=== PATIENT | female | born 1965 | race Caucasian/White ===

== ENCOUNTER 2022-11-04 07:57 | Emergency (ER) | payer BC, SELFPAY ==
--- NOTE | ~2022-11-04 | XR_ITS ---
EXAMINATION: XR chest 2V DATE: 11/04/2022 08:50 INDICATION: Sharp abdominal pain concurrent with syncopal episode TECHNIQUE: frontal and lateral views of the chest were obtained. COMPARISON: None FINDINGS: The lungs are clear with no focal airspace opacities, pulmonary edema, pleural effusion or pneumothor ax. The cardiomediastinal silhouette is normal. Post cystectomy clips in right upper quadrant. Left t otal shoulder arthroplasty. IMPRESSION: 1. No acute cardiopulmonary disease. Reviewed, dictated and finalized at location A.
--- NOTE | ~2022-11-04 | CT_ITS ---
CT of the Abdomen and Pelvis: Indication: Abdominal pain Technique: 2.5 mm axial scans were obtained through the abdomen and pelvis following intravenous adm inistration of 100 cc of Omnipaque 350. Dose reduction technique was used on this scan by utilizing a utomated exposure control and iterative reconstruction technique. The dose-length product (DLP) was 2 39.43 mGy-cm. Findings: Scans through the lung bases are unremarkable. 9 mm hypodense left hepatic lobe structure is present, indeterminate. Cholecystectomy clips are prese nt. The spleen, pancreas, adrenals and kidneys are within normal limits. No evidence of aortic aneur ysm. No lymphadenopathy. No bowel obstruction. There is an area of apparent active contrast extravasation into the lumen of th e terminal ileum (axial image 113), suspicious for active GI bleeding at this location. Images through the pelvis were performed. Urinary bladder unremarkable. No pelvic mass seen. No ascit es. Impression: Contrast extravasation into the terminal ileum, consistent with active GI bleed at this location. Irregular 9 mm hypodense left hepatic structure, too small to characterize definitively. Statisticall y this is most likely a small cyst or hemangioma. Case discussed with Dr. Daniels at the time of this reading. Reviewed, dictated and finalized at location M. Impression: Contrast extravasation into the terminal ileum, consistent with active GI bleed at this location. Irregular 9 mm hypodense left hepatic structure, too small to characterize defi nitively. Statistically this is most likely a small cyst or hemangioma. Case discussed with Dr. Daniels at the time of this reading.
[2022-11-04 07:54] VITALS: BP 128/66; PULSE 65; RESP 16; O2SAT 98
--- NOTE | 2022-11-04 08:19 | ECG_ITS ---
Measurements Intervals Spade Rate: 63 P: 76 NH: 167 QRS: 49 QRSD: 95 T: 58 QT: 410 QTc: 423 Interpretive Statements SINUS RHYTHM BORDERLINE T WAVE ABNORMALITY- ANTERIOR LEADS BASELINE ARTIFACT- II, III, AVF BORDERLINE ECG NO PREVIOUS ECG AVAILABLE FOR COMPARISON Electronically Signed On 11-04-2022 9:05:30 CDT by Sathish Pisano D.O.
[2022-11-04] MEDS: SODIUM CHLORIDE 0.9% IV 1,000 ML 999 ML IV CONT (08:30)
[2022-11-04 09:08] LABS: Appearance Urine Clear (Clear); Bilirubin Urine Negative (Negative); Blood Urine Negative (Negative); Color Urine Yellow (Yellow); Glucose Urine UA Negative (Negative); Ketones Urine 1+ mg/dL (Negative); Leukocyte Esterase Ur Negative LEU/UL (Negative); Nitrate Urine Negative (Negative); Protein Urine Negative (Negative); Specific Grav Ur 1.023 (1.001-1.035); Urobilinogen Urine 0.2 mg/dL (<2.0)
[2022-11-04 09:16] LABS: Add Urine Microscopic? NO
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
[2022-11-04 09:38] LABS: Basophils Percent Auto 0.4 % (0.2-1.2); Eosinophils Absolute Auto 0.1 K/mm3 (0-0.3); Eosinophils Percent Auto 1.7 % (0-4.4); Hematocrit 40.7 % (37.0-47.0); Hemoglobin 13.4 g/dL (12.0-15.0); Immature Granulocyte Absolute 0.02 K/mm3 (0.00-0.031); Immature Granulocyte Percent A 0.3 % (0-0.5); Lymphocytes Absolute Auto 1.78 K/mm3 (0.9-3.2); Lymphocytes Percent Auto 25.6 % (18.3-44.2); Mean Corpuscular HGB Conc 32.9 g/dl (32-36); Mean Corpuscular Hemoglobin 32.5 pg (26-34); Mean Corpuscular Volume 98.8 fl (80-100); Mean Platelet Volume 9.4 fl (7.4-10.4); Monocytes Absolute Auto 0.8 K/mm3 (0.1-0.6); Neutrophils Absolute Auto 4.2 K/mm3 (1.3-6.7); Platelet Count Result 201 k/mm3 (150-375); Red Blood Count 4.12 M/mm3 (4.2-5.4); Red Cell Distribution Width 13.9 % (11.5-14.5); White Blood Count 6.9 K/mm3 (4.5-10.0)
[2022-11-04 09:48] LABS: Alanine Aminotransferase 34 U/L (6-35); Albumin Level 3.7 g/dL (3.5-5.1); Alkaline Phosphatase 61 U/L (38-126); Anion Gap 5 mmol/L (8-16); Aspartate Amino Transferase 36 U/L (14-36); Bilirubin,Total 0.4 mg/dL (0.2-1.3); Blood Urea Nitrogen 17 mg/dL (7-17); Calcium 8.5 mg/dL (8.4-10.2); Carbon Dioxide 21 mmol/L (22-30); Chloride 105 mmol/L (98-107); Estimated CRCL calculation 71 ml/min; Estimated Glomerular Filt Rate > 60; Glucose 89 mg/dL (65-110); Magnesium 1.8 mg/dL (1.6-2.3); Potassium 4.3 mmol/L (3.4-5.0); Sodium 131 mmol/L (137-145)
[2022-11-04 10:03] LABS: Troponin I < 0.012 ng/mL (0.000-0.034)
[2022-11-04 12:14] LABS: INR 0.9; Prothrombin Time 12.4 Seconds (11.1-14.7)
[2022-11-04 12:16] LABS: Lactic Acid Reflex 0.7 mmol/L (0.7-2.0)
[2022-11-04 13:01] LABS: Hematocrit 41.5 % (37.0-47.0)
[2022-11-04 13:07] VITALS: BP 128/56; PULSE 61; RESP 17; O2SAT 100
== END 2022-11-04 13:40 | disposition left against medical advice (07) ==
PROVIDERS: Emergency Provider Preventive Medicine Aerospace Medicine; PCP Internal Medicine
DX: R55 Syncope and collapse (principal); K92.2 Gastrointestinal hemorrhage, unspecified; M06.9 Rheumatoid arthritis, unspecified; R94.31 Abnormal electrocardiogram [ECG] [EKG]
CPT/HCPCS: 36415; 71046; 74177; 80053; 81003; 83605; 83735; 84484; 85014; 85018; 85025; 85610; 93005; 96360; 96361; 99284; J7030; Q9967

== ENCOUNTER 2023-09-27 17:39 | Outpatient (CLI) | payer BC, SELFPAY ==
--- NOTE | ~2023-09-27 | XR_ITS ---
EXAM: XR lumbar spine 2-3V DATE: 09/27/2023 17:58 HISTORY: LOW BACK PAIN mostly left/non inj x 2 wks non radiculopathy . COMPARISON: None available. FINDINGS: Cholecystectomy clips. Rudimentary disc at S1-S2. 5 nonrib-bearing lumbar-type vertebral nikia dies. Pedicles intact. Normal vertebral body alignment. Vertebral body heights preserved. Multilevel moderate disc space narrowing and mild marginal osteophytosis. Mild and moderate degrees of facet hyp ertrophy in the mid and lower lumbar spine. No fracture or dislocation. IMPRESSION: Multilevel moderate degenerative disc disease. Mild-moderate mid and lower lumbar facet a rthropathy. Reviewed, dictated and finalized at location K. IMPRESSION: Multilevel moderate degenerative disc disease. Mild-moderate mid an d lower lumbar facet arthropathy.
[2023-09-27 18:15] LABS: Appearance Urine Clear (Clear); Bilirubin Urine Negative (Negative); Blood Urine Negative (Negative); Color Urine Yellow (Yellow); Glucose Urine UA Negative (Negative); Ketones Urine Negative (Negative); Leukocyte Esterase Ur Negative LEU/UL (Negative); Nitrate Urine Negative (Negative); Protein Urine Negative (Negative); Specific Grav Ur 1.005 (1.001-1.035); Urobilinogen Urine 0.2 mg/dL (<2.0)
[2023-09-27 18:18] LABS: Add Urine Microscopic? NO
== END 2023-09-27 17:40 | disposition home or self-care (01) ==
LOC: ANHIMG 17:40
PROVIDERS: PCP Internal Medicine; Visit Provider Orthopaedic Surgery
DX: R30.9 Painful micturition, unspecified (principal)
CPT/HCPCS: 72100; 81003; 87086